=== PATIENT | male | born 1960 | race Caucasian/White ===

== ENCOUNTER 2018-04-14 15:42 | Outpatient (CLI) | payer MEDICARE, MEDICAID ==
[~2018-04-14] VITALS: Ht 182.9 cm; Wt 90.7 kg
[~2018-04-14 15:42] MED LIST: CYCL-1 PO; LYR25C PO; ONDA8TAB6 PO; SUCR1ORA2 PO
[2018-04-14] MEDS ORDERED: albuterol 2.5 MG/3 ML nebule ONE (16:11)
[2018-04-14] MEDS ORDERED: albuterol 2.5 MG/3 ML nebule NEB PRN (16:25)
== END 2018-04-14 23:59 | disposition home or self-care (01) ==
LOC: RT 15:42
PROVIDERS: ATTEND Student in an Organized Health Care Education/Training Program
DX: Z12.2 Encounter for screening for malignant neoplasm of respiratory organs (principal); J44.9 Chronic obstructive pulmonary disease, unspecified; Z87.891 Personal history of nicotine dependence
CPT/HCPCS: 94060; 94760